=== PATIENT | female | born 1990 | race Caucasian/White ===

== ENCOUNTER 2018-12-21 16:53 | Emergency (ER) | payer BC ==
[~2018-12-21] VITALS: Ht 149.9 cm; Wt 72.2 kg
[2018-12-21 17:06] VITALS: BP 112/73
[2018-12-21 17:44] LABS: BASOPHILS % (AUTO) 0.1 % (0.0-2.0); EOSINOPHILS % (AUTO) 0.1 % (0.0-4.0); HEMATOCRIT 43.1 % (36-48); HEMOGLOBIN 14.5 g/dL (12.0-16.0); LYMPHOCYTES # (AUTO) 0.9 K/uL (2.5-16.5); LYMPHOCYTES % (AUTO) 7.4 % (20.5-51.1); MEAN CORPUSCULAR HEMOGLOBIN 31 pg (27-31); MEAN CORPUSCULAR HGB CONC 34 g/dL (33-37); MEAN CORPUSCULAR VOLUME 92.6 fL (80-94); MONOCYTES # (AUTO) 0.4 K/uL (0.8-1.0); MONOCYTES % (AUTO) 2.9 % (1.7-9.3); NEUTROPHILS # (AUTO) 11.3 K/uL (1.8-7.7); NEUTROPHILS % (AUTO) 89.5 % (42.2-75.2); PLATELET COUNT (AUTO) 259 K/uL (140-450); RED BLOOD CELL COUNT(AUTO) 4.66 MIL/uL (4.20-5.40); RED CELL DISTRIBUTION WIDTH 12.9 % (11.6-13.7); WHITE BLOOD COUNT (AUTO) 12.6 K/uL (4.8-10.8)
--- NOTE | 2018-12-21 18:04 | NUR ---
pt ambulated to bed 1
[2018-12-21 18:12] LABS: ALBUMIN 4.1 g/dL (3.4-5.0); ANION GAP 15.7 (8-16); CREATININE 0.9 mg/dL (0.6-1.3); POTASSIUM 3.7 mmol/L (3.5-5.1); TOTAL BILIRUBIN 1.4 mg/dL (0.0-1.0)
--- NOTE | 2018-12-21 18:18 | NUR ---
28F C/O N/V/D SINCE THIS MORNING. PATIENT STATES FAMILY ATE CHICKEN LAST NIGHT, ENTIRE FAMILY HAS N/V/D SINCE THIS MORNING. STATES STOOL IS NOW CLEAR. DENIES ABDOMINAL PAIN. STATES MILD BACK PAIN. NO FEVER, STATES CHILLS THIS AM. UNABLE TO DOWN ORAL INTAKE. ABD SOFT AND NON-TENDER. +BOWEL SOUNDS IN ALL QUADRANTS. BEDRAILS UP X1, BED LOCKED AND LOW. ERMD TO EVAL PATIENT. MEDHX:DENIES RX:DENIES
--- NOTE | 2018-12-21 19:13 | NUR ---
Pt report given to VIVIEN. Transfer of care at this time.
[2018-12-21] MEDS ORDERED: NACL 0.9% 1,000 ML IV ONE (19:55)
[2018-12-21] MEDS ORDERED: ONDANSETRON 4 MG/2 ML VIAL IVP ONE (19:55)
[2018-12-21] MEDS ORDERED: KETOROLAC 30 MG/ML VIAL IVP ONE (19:55)
--- NOTE | 2018-12-21 21:02 | NUR ---
DISCHARGE PAPERWORK PROVIDED TO PT. NO N/V PT STATES RELIEF. RX OF ZOFRAN SIDE EFFECTS EXPLAINED. INSTRUCTED TO MAINTAIN ADEQUATE FLUID INTAKE. INSTRUCTED TO FOLLOW WITH PCP AND WHEN TO RETURN TO ER. PT VERBALIZED UNDERSTANDING OF D/C INSTRUCTIONS. ALL QUESTIONS ANSWERED.
[2018-12-21 21:09] VITALS: BP 110/57
== END 2018-12-21 21:02 | disposition home or self-care (01) ==
LOC: MED 16:53
DX: T62.8X1A Toxic effect of other specified noxious substances eaten as food, accidental (unintentional), initial encounter (principal); R11.2 Nausea with vomiting, unspecified; R19.7 Diarrhea, unspecified; Y92.89 Other specified places as the place of occurrence of the external cause
CPT/HCPCS: 36415; 80053; 81002; 81025; 85025; 96361; 96374; 96375; 99283; J1885; J2405; J7030

== ENCOUNTER 2020-09-22 19:02 | Emergency (ER) | payer BC ==
[~2020-09-22] VITALS: Ht 149.9 cm; Wt 68.0 kg
[2020-09-22 19:12] VITALS: BP 153/116
[2020-09-22] MEDS ORDERED: KETOROLAC 60 MG/2 ML VIAL IM ONE (21:10)
[2020-09-22] MEDS ORDERED: IBUP-2213 PO (22:06)
[2020-09-22] MEDS ORDERED: ACET-8386 PO (22:06)
[2020-09-22 22:26] VITALS: BP 153/116
== END 2020-09-22 22:25 | disposition home or self-care (01) ==
LOC: MED 19:02
DX: R51.9 Headache, unspecified (principal)
CPT/HCPCS: 81002; 81025; 96372; 99283; J1885

== ENCOUNTER 2023-11-23 15:16 | Emergency (ER) | payer BC, OTHER ==
[~2023-11-23] VITALS: Ht 149.9 cm; Wt 72.1 kg
[~2023-11-23 15:16] MED LIST: ACET-8905 PO; IBUP-2213 PO
[2023-11-23 15:35] VITALS: BP 120/72; PULSE 89; RESP 18; TEMP 97.3; O2SAT 100
[2023-11-23] MEDS ORDERED: KETOROLAC 30 MG/ML VIAL ONE (16:10)
[2023-11-23] MEDS: KETOROLAC 30 MG/ML VIAL IVP ONE (16:21)
[2023-11-23 16:26] LABS: APPEARANCE,URINE CLEAR (CLEAR); BILIRUBIN,URINE NEGATIVE (NEGATIVE); BLOOD, URINE NEGATIVE (NEGATIVE); COLOR,URINE YELLOW (YELLOW); LEUKOCYTE ESTERASE ,URINE NEGATIVE (NEGATIVE); NITRITE, URINE NEGATIVE (NEGATIVE); PROTEIN,URINE NEGATIVE (NEGATIVE); UGLUCOSE NEGATIVE (NEGATIVE); UROBILINOGEN,URINE 0.2 EU/dL (0.2 - 1)
[2023-11-23 16:27] LABS: BASOPHILS % (AUTO) 0.6 % (0.0-2.0); EOSINOPHILS # (AUTO) 0.1 K/uL (0-0.4); EOSINOPHILS % (AUTO) 0.9 % (0.0-4.0); HEMATOCRIT 39.5 % (36-48); HEMOGLOBIN 13.6 g/dL (12.0-16.0); LYMPHOCYTES # (AUTO) 3.3 K/uL (2.5-16.5); LYMPHOCYTES % (AUTO) 44.3 % (20.5-51.1); MEAN CORPUSCULAR HEMOGLOBIN 32 pg (27-31); MEAN CORPUSCULAR HGB CONC 34 g/dL (33-37); MEAN CORPUSCULAR VOLUME 91.8 fL (80-94); MONOCYTES # (AUTO) 0.4 K/uL (0.8-1.0); MONOCYTES % (AUTO) 4.9 % (1.7-9.3); NEUTROPHILS # (AUTO) 3.7 K/uL (1.8-7.7); NEUTROPHILS % (AUTO) 49.3 % (42.2-75.2); PLATELET COUNT (AUTO) 261 K/uL (140-450); RED CELL DISTRIBUTION WIDTH 12.9 % (11.6-13.7); WHITE BLOOD COUNT (AUTO) 7.4 K/uL (4.8-10.8)
[2023-11-23 16:33] LABS: ANION GAP 13.9 (8-16); CARBON DIOXIDE 26.9 mmol/L (21-32); CREATININE 0.6 mg/dL (0.6-1.3); POTASSIUM 3.8 mmol/L (3.5-5.1)
[2023-11-23 16:37] LABS: ALBUMIN 3.9 g/dL (3.4-5.0); BILIRUBIN,DIRECT 0.1 mg/dL (0.0-0.3); TOTAL BILIRUBIN 0.8 mg/dL (0.0-1.0); TOTAL PROTEIN, SERUM 7.9 g/dL (6.4-8.2)
[2023-11-23] MEDS ORDERED: IBUP-2213 PO (18:39)
[2023-11-23 19:00] VITALS: BP 115/77; PULSE 66; RESP 18; TEMP 36.28068; O2SAT 100
== END 2023-11-23 19:00 | disposition home or self-care (01) ==
LOC: MED 15:16
DX: N83.202 Unspecified ovarian cyst, left side (principal); N83.201 Unspecified ovarian cyst, right side; Z79.899 Other long term (current) drug therapy
CPT/HCPCS: 36415; 74176; 76856; 80048; 80076; 81003; 81025; 83690; 85025; 93976; 96374; 99285; J1885; Q0092